=== PATIENT | female | born 1950 | race Caucasian/White ===

== ENCOUNTER → 2016-05-24 | Outpatient (CLI) | payer OTHER ==
[~2016-05-24] MED LIST: AMLODIPINE BESY10 MG PO; ASPIRIN EC81 M1 PO; AVAPRO300 MG PO; CARBAMAZEPINE200 M2 PO; CLONAZEPAM PO; EFFEXOR XR150 MG PO; LIPITOR20 MG PO; NORCO 5-325 TA1 EACH PO; REQUIP XL2 MG PO; TEGRETOL XR200 MG; XANAX 0.5 MG0.5 MG PO
== END ==
LOC: RAD 05-17 16:37
DX: Z12.31 Encounter for screening mammogram for malignant neoplasm of breast (principal); N63 Unspecified lump in breast

== ENCOUNTER → 2016-06-05 | Outpatient (CLI) | payer OTHER | LOC: RAD 01:24 | DX: N63 Unspecified lump in breast (principal) ==

== ENCOUNTER → 2017-07-31 | Outpatient (CLI) | payer OTHER | LOC: RAD 04:32 | DX: Z12.31 Encounter for screening mammogram for malignant neoplasm of breast (principal); I25.10 Atherosclerotic heart disease of native coronary artery without angina pectoris ==

== ENCOUNTER → 2018-10-07 | Outpatient (CLI) | payer OTHER | LOC: RAD 01:07 | DX: Z12.31 Encounter for screening mammogram for malignant neoplasm of breast (principal) ==

== ENCOUNTER → 2019-12-03 | Outpatient (CLI) | payer OTHER | LOC: BC 13:49 | PROVIDERS: ATTEND Internal Medicine | DX: Z12.31 Encounter for screening mammogram for malignant neoplasm of breast (principal) ==

== ENCOUNTER → 2020-12-21 | Outpatient (CLI) | payer OTHER | LOC: BC 10:06 | PROVIDERS: ATTEND Internal Medicine | DX: Z12.31 Encounter for screening mammogram for malignant neoplasm of breast (principal); N64.89 Other specified disorders of breast ==